=== PATIENT | female | born 1940 | race Caucasian/White ===

== ENCOUNTER 2016-08-13 12:24 | Emergency (ER) | payer MEDICARE ==
[~2016-08-13] VITALS: Ht 317.5 cm; Wt 65.0 kg
[~2016-08-13 12:24] MED LIST: ASPI1TAB69 PO; BACT800T5 PO; CARV25TA PO; FOLI1TAB4 PO; METH2.5T PO; OMEP20TA PO; OXYC-392 PO; ROSU1TAB6 PO; SERT-132 PO
[2016-08-13 12:48] VITALS: BP 159/71; PULSE 88; RESP 18; TEMP 98.4; O2SAT 96
--- NOTE | 2016-08-13 13:36 | PD ---
HPI Chief Complaint: Fall Time Seen by Provider: 12:48 Travel History International Travel<30 days: No Contact w/Intl Traveler<30days: No Traveled to known affect area: No History of Present Illness HPI 76 year-old woman history rheumatoid arthritis, some generalized debility, normally walks with a walker outside the house, no assistive devices inside a house, didn't with pain in her left back and left hip starting 2 days ago. 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 Since that time she's been having some intermittent left sided low back pain rating in the left hip. States symptoms come and go, worse when she goes to get from a seated to a standing position or lying to a seated position. Worse with standing. She otherwise has been feeling generally well. History Past Medical History Narrative Medical CAD, history of CABG Hyperlipidemia Osteoporosis Rheumatoid arthritis, on methotrexate Influenza Vaccination: Yes Menopausal: Yes : 4 Para: 3 Social History Alcohol Use: Yes (occ) Tobacco Use: No Allergies-Medications (Allergen,Severity, Reaction): Coded Allergies: No Known Allergies (Unverified , 08/13/16) Reported Meds & Prescriptions Reported Meds & Active Scripts Active Reported Omeprazole 20 Mg Tab 20 Mg PO DAILY Carvedilol 25 Mg Tab 25 Mg PO DAILY Oxycodone (Oxycodone HCl) 5 Mg Tab 5 Mg PO Q8HR Rosuvastatin (Rosuvastatin Calcium) 10 Mg Tab 10 Mg PO HS Folate (Folic Acid) 1 Mg Tab 1 Mg PO DAILY Sertraline (Sertraline HCl) 50 Mg Tab 50 Mg PO DAILY Methotrexate 2.5 Mg Tab 15 Mg PO Q7D Aspirin 81 Mg Tabdr 81 Mg PO DAILY Review of Systems Except as stated in HPI: all other systems reviewed are Neg Physical Exam Narrative GENERAL: Well-appearing 76 year-old woman, no acute distress. SKIN: Warm and dry. HEAD: Atraumatic. Normocephalic. CARDIOVASCULAR: Regular rate and rhythm. No murmur appreciated. RESPIRATORY: No accessory muscle use. Clear to auscultation. Breath sounds equal bilaterally. GASTROINTESTINAL: Abdomen soft, non-tender, nondistended. Hepatic and splenic margins not palpable. MUSCULOSKELETAL: No obvious deformities. No edema. Full range of motion of the left hip. There is no pain with internal or external rotation of the hip. With flexion of the knee to the [place] some pain in the low back and left hip. There is no obvious instability. Back exam reveals a little bit tenderness in the left low paraspinous muscles. NEUROLOGICAL: Awake and alert. No obvious cranial nerve deficits. Motor grossly within normal limits. Normal speech. PSYCHIATRIC: Appropriate mood and affect; insight and judgment normal. Data Data Last Documented VS Vital Signs Date Time Temp Pulse Resp B/P Pulse Ox O2 Delivery O2 Flow Rate FiO2 08/13/16 14:39 60 18 146/59 96 Room Air 08/13/16 12:[address] Pelvis W/O Iv Contrast (08/13/16 ) Ct Lumb Spine W/O Contrast (08/13/16 ) [facility] Medical Decision Making Medical Screen Exam Complete: Yes Emergency Medical Condition: Yes Interpretation(s) L-spine CT: Compression fracture L3 unchanged. Mild disc bulges lower lumbar spine. AAA measuring at least 4.3 cm but not completely evaluated. No acute fracture. Distal AAA measuring 4.2 x 2.7 cm. Diverticulosis. Differential Diagnosis Fracture, contusion, strain or sprain, other Narrative Course Medical decision making INITIAL: Left hip pain after fall on the right side. Possible she could have some chronic, compression fracture or pubic ramus fracture. Possible strain or sprain if she was walking abnormally from her right sided pain. She looks overall well. History of similar pains in the past. We'll check CT imaging, reassess, likely discharge for outpatient follow-up. Diagnosis Primary Impression: Acute exacerbation of chronic low back pain Additional Instructions: Follow-up with your primary doctor in the next 2-4 days. Return to the emergency department for any worsening pain, weakness, or any other new or worsening symptoms. Disposition: 01 DISCHARGE HOME Condition: Stable Yuri Edmonds MD Aug 13, 2016 13:36
[2016-08-13 14:39] VITALS: BP 146/59; PULSE 60; RESP 18; O2SAT 96
--- NOTE | 2016-08-13 14:39 | RADHPO ---
EXAM DATE/TIME: 08/13/2016 13:46 [facility] COMPARISON: CT LUMBAR SPINE W/O CONTRAST, June 09, 2016, 9:35. INDICATIONS : Trauma. Fell yesterday. Left hip and low back pain. RADIATION DOSE: 31.49 CTDIvol (mGy) MEDICAL HISTORY : Cardiovascular disease. Gastroesophageal reflux disease. Hypertension. SURGICAL HISTORY : CABG section.Gastric bypass. Hiatal hernia repair. ENCOUNTER: Initial ACUITY: 1 day PAIN SCALE: 8/10 LOCATION: Left Low back. TECHNIQUE: Volumetric scanning of the lumbar spine was performed. Multiplanar reconstructions in the sagittal, coronal and oblique axial planes were performed. Using automated exposure control and adjustment of the mA and/or kV according to patient size, radiation dose was kept as low as reasonably achievable t o obtain optimal diagnostic quality images. FINDINGS: VERTEBRAE: Mild/moderate compression fracture again noted along the superior endplate of L3. ALIGNMENT: No evidence of subluxation. Abdominal aortic aneurysm not completely visualized but measures at least 4.3 cm. Facet arthropathy lower lumbar spine. T12-L1: The thecal sac has a normal diameter. No evidence of disc bulge or protrusion. The neural foramina are patent bilaterally. L1-L2: The thecal sac has a normal diameter. No evidence of disc bulge or protrusion. The neural foramina are patent bilaterally. L2-L3: Mild broad-based disc bulge and slight retropulsion of posterior vertebral body from compression frac ture abuts the ventral thecal sac. No significant canal stenosis. The neural foramina are patent gregory aterally. L3-L4: Mild broad-based disc bulge abuts ventral thecal sac. No canal stenosis The neural foramina are paten t bilaterally. L4-L5: Mild broad-based disc bulge abuts ventral thecal sac. No canal stenosis. The neural foramina are pat ent bilaterally. L5-S1: The thecal sac has a normal diameter. No evidence of disc bulge or protrusion. The neural foramina are patent bilaterally. CONCLUSION: 1. Compression fracture at L3 is unchanged. 2. Mild disc bulges lower lumbar spine. 3. Abdominal aortic aneurysm measuring at least 4.3 cm but not completely evaluated on this study. Robert Gordon MD on August 13, 2016 at 14:29 Board Certified Radiologist. This report was verified electronically.
--- NOTE | 2016-08-13 14:45 | RADHPO ---
EXAM DATE/TIME: 08/13/2016 13:46 [facility] COMPARISON: No previous studies available for comparison. INDICATIONS : Trauma. Fell yesterday. Left hip and low back pain. ORAL CONTRAST: No oral contrast ingested. RADIATION DOSE: 25.85 CTDIvol (mGy) MEDICAL HISTORY : Cardiovascular disease. Gastroesophageal reflux disease. Hypertension. SURGICAL HISTORY : CABG section.Gastric bypass. Hiatal hernia repair. ENCOUNTER: Initial ACUITY: 1 day PAIN SCALE: 8/10 LOCATION: Left pelvis TECHNIQUE: Volumetric scanning of the pelvis was performed. Using automated exposure control and adjustment of the mA and/or kV according to patient size, radiation dose was kept as low as reasonably achievable t o obtain optimal diagnostic quality images. FINDINGS: BOWEL/MESENTERY: Diverticulosis without diverticulitis. No pelvic free fluid BLADDER: There is no wall thickening or mass. RETROPERITONEUM: There is no aneurysm or lymphadenopathy. REPRODUCTIVE: Within normal limits. INGUINAL: There is no lymphadenopathy or hernia. MUSCULOSKELETAL: Within normal limits for patient age. CONCLUSION: 1. No acute fracture. 2. Distal abdominal aortic aneurysm measures 4.2 x 3.7 cm. 3. Diverticulosis without diverticulitis. Robert Gordon MD on August 13, 2016 at 14:41 Board Certified Radiologist. This report was verified electronically.
== END 2016-08-13 15:10 | disposition home or self-care (01) ==
LOC: PHED 12:24
DX: M54.5 Low back pain (principal); G89.29 Other chronic pain
CPT/HCPCS: 72131; 72192

== ENCOUNTER 2017-01-14 12:35 | Emergency (ER) | payer MEDICARE ==
[~2017-01-14 12:35] MED LIST changes: -BACT800T5 PO
[2017-01-14 12:47] VITALS: BP 115/74; PULSE 81; RESP 16; TEMP 100.5; O2SAT 91
[2017-01-14] MEDS ORDERED: PRED5TAB PO (13:02)
[2017-01-14] MEDS ORDERED: FOLI1TAB6 PO (13:02)
[2017-01-14] MEDS ORDERED: ASPI81CH CHEW (13:02)
--- NOTE | 2017-01-14 13:18 | PD ---
HPI Chief Complaint: Dizziness Time Seen by Provider: 13:01 Travel History International Travel<30 days: No Contact w/Intl Traveler<30days: No Traveled to known affect area: No History of Present Illness HPI 77 years old female complains of dizziness. Patient states that the dizziness started this morning. Patient states that she has been unable to ambulate much because of the dizziness. Patient states that the dizziness is with ambulation. Patient states that she does not have any dizziness at rest. Patient states that she has mild aching headache behind the left eye this morning but that resolved completely. Patient denies any visual change. Patient denies any neck pain. Patient states that she has nonproductive cough for the past week. Patient denies any chest pain or shortness of breath. Patient denies abdominal pain. Patient denies any nausea vomiting diarrhea. Patient states that she had urinary frequency recently. Patient denies any dysuria. Patient denies any back pain. Patient denies any focal weakness and numbness of extremity. Patient denies any fever chills. PFSH Past Medical History Hx Anticoagulant Therapy: No Arthritis: Yes (R/A) Autoimmune Disease: Yes Anxiety: No Depression: Yes High Cholesterol: Yes Coronary Artery Disease: Yes Diminished Hearing: No Endocrine: No GERD: Yes Genitourinary: No Hypertension: Yes Immune Disorder: No Implanted Vascular Access Dvce: Yes Musculoskeletal: Yes Neurologic: No Psychiatric: No Reproductive: No Respiratory: No Thyroid Disease: No Influenza Vaccination: Yes ?: Not Menopausal: Yes : 4 Para: 3 Past Surgical History Abdominal Surgery: Yes (BYPASS AND HIATAL HERNIA REPAIR, BARIATRIC SURGERY.) Body Medical Devices: SCREWS IN RIGHT ANKLE. Section: Yes Coronary Artery Bypass Graft: Yes (TRIPLE BYPASS 2002) Social History Alcohol Use: Yes (ODDAS) Tobacco Use: No Substance Use: No Allergies-Medications (Allergen,Severity, Reaction): Coded Allergies: No Known Allergies (Unverified , 01/14/17) Reported Meds & Prescriptions Reported Meds & Active Scripts Active Reported Prednisone 5 Mg Tab 5 Mg PO DAILY PRN Folic Acid 1 Mg Tablet 1 Micron PO EVERY DAY BUT WEDNESDAY Aspirin 81 Mg Chew 81 Mg CHEW DAILY Omeprazole 20 Mg Tab 20 Mg PO DAILY Carvedilol 25 Mg Tab 12.5 Mg PO DAILY Oxycodone (Oxycodone HCl) 5 Mg Tab 5 Mg PO DAILY Rosuvastatin (Rosuvastatin Calcium) 10 Mg Tab 10 Mg PO HS Sertraline (Sertraline HCl) 50 Mg Tab 50 Mg PO DAILY Methotrexate 2.5 Mg Tab 20 Mg PO Q7D Review of Systems General / Constitutional: No: Fever Eyes: No: Visual changes HENT: Positive: Lightheadedness, No: Headaches Cardiovascular: No: Chest Pain or Discomfort Respiratory: No: Shortness of Breath Gastrointestinal: No: Abdominal Pain Genitourinary: No: Dysuria Musculoskeletal: No: Pain Skin: No Rash Neurologic: No: Weakness Psychiatric: No: Depression Endocrine: No: Polydipsia Hematologic/Lymphatic: No: Easy Bruising Physical Exam Narrative GENERAL: Well-nourished, well-developed patient. SKIN: Focused skin assessment warm/dry. HEAD: Normocephalic. EYES: No scleral icterus. No injection or drainage. Pupils 3 mm equal reactive. NECK: Supple, trachea midline. No JVD or lymphadenopathy. No meningismus CARDIOVASCULAR: Regular rate and rhythm without murmurs, gallops, or rubs. RESPIRATORY: Breath sounds equal bilaterally. No accessory muscle use. GASTROINTESTINAL: Abdomen soft, non-tender, nondistended. MUSCULOSKELETAL: No cyanosis, or edema. BACK: Nontender without obvious deformity. No CVA tenderness. Neurologic exam: Patient is awake and alert oriented 3. No obvious focal neurological deficit. Data Data Last Documented VS Vital Signs Date Time Temp Pulse Resp B/P Pulse Ox O2 Delivery O2 Flow Rate FiO2 01/14/17 13:29 18 93 Room Air 01/14/17 12:47 100.5 81 115/74 Orders Electrocardiogram (01/14/17 13:07) Complete Blood Count With Diff (01/14/17 13:07) Comprehensive Metabolic Panel (01/14/17 13:07) Creatine Kinase (Cpk) (01/14/17 13:07) Troponin I (01/14/17 13:07) Prothrombin Time / Inr (Pt) (01/14/17 13:07) Act Partial Throm Time (Ptt) (01/14/17 13:07) Blood Culture (01/14/17 13:07) Urinalysis - C+S If Indicated (01/14/17 13:07) Chest, Single Ap (01/14/17 13:07) Iv Access Insert/Monitor (01/14/17 13:07) Ecg Monitoring (01/14/17 13:07) Oximetry (01/14/17 13:07) Lactic Acid Sepsis Protocol (01/14/17 13:07) Ct Brain W/O Iv Contrast(Rout) (01/14/17 13:15) Labs Laboratory Tests Test 01/14/17 01/14/17 01/14/17 01/14/17 13:15 13:25 14:00 14:10 White Blood Count 6.4 TH/MM3 Red Blood Count 3.47 MIL/MM3 Hemoglobin 12.0 GM/DL Hematocrit 36.0 % Mean Corpuscular Volume 103.9 FL Mean Corpuscular Hemoglobin 34.5 PG Mean Corpuscular Hemoglobin 33.2 % Concent Red Cell Distribution Width 14.8 % Platelet Count 123 TH/MM3 Mean Platelet Volume 8.1 FL Neutrophils (%) (Auto) 77.0 % Lymphocytes (%) (Auto) 7.6 % Monocytes (%) (Auto) 6.2 % Eosinophils (%) (Auto) 8.9 % Basophils (%) (Auto) 0.3 % Neutrophils # (Auto) 4.9 TH/MM3 Lymphocytes # (Auto) 0.5 TH/MM3 Monocytes # (Auto) 0.4 TH/MM3 Eosinophils # (Auto) 0.6 TH/MM3 Basophils # (Auto) 0.0 TH/MM3 CBC Comment DIFF FINAL Differential Comment Prothrombin Time 10.9 SEC Prothromb Time International 1.0 RATIO Ratio Activated Partial 27.8 SEC Thromboplast Time Lactic Acid Level 1.7 mmol/L Sodium Level 141 MEQ/L Potassium Level 3.9 MEQ/L Chloride Level 107 MEQ/L Carbon Dioxide Level 25.9 MEQ/L Anion Gap 8 MEQ/L Blood Urea Nitrogen 16 MG/DL Creatinine 0.69 MG/DL Estimat Glomerular Filtration 83 ML/MIN Rate Random Glucose 109 MG/DL Calcium Level 8.0 MG/DL Total Bilirubin 0.4 MG/DL Aspartate Amino Transf 26 U/L (AST/SGOT) Alanine Aminotransferase 22 U/L (ALT/SGPT) Alkaline Phosphatase 73 U/L Total Creatine Kinase 60 U/L Troponin I LESS THAN 0.02 NG/ML Total Protein 6.6 GM/DL Albumin 3.0 GM/DL Urine Collection Type VOIDED Urine Color STRAW Urine Turbidity CLEAR Urine pH 6.0 Urine Specific [place] 1.007 Urine Protein NEG mg/dL Urine Glucose (UA) NEG mg/dL Urine Ketones NEG mg/dL Urine Occult Blood TRACE Urine Nitrite NEG Urine Bilirubin NEG Urine Leukocyte Esterase NEG Urine Squamous Epithelial 0-5 /hpf Cells Microscopic Urinalysis Comment CULT NOT INDICATED Urine Collection Time 1410 [facility] Medical Decision Making Medical Screen Exam Complete: Yes Emergency Medical Condition: Yes Interpretation(s) Last Impressions Head CT 01/14/17 1315 Signed Impressions: Service Date/Time: , January 14, 2017 14:04 - CONCLUSION: Normal examination for a patient of this age. No significant change compared to the prior exam. Homer Rice MD Chest X-Ray 01/14/17 1307 Signed Impressions: Service Date/Time: , January 14, 2017 13:32 - CONCLUSION: No acute disease. No significant change has occurred. Homer Rice MD 1454 PM. CBC with WBC 6.4. Hemoglobin 12.0 hematocrit 36.0. MCV 103.9. Platelet 123. 77 neutrophil. CMP within normal limits. Lactic acid 1.7. Cardiac enzymes are normal. UA is negative. Differential Diagnosis Differential diagnosis including viral syndrome, vertigo, electrolyte abnormality, dehydration, pneumonia, UTI, sepsis. Narrative Course 77 years old female with fever, dizziness and coughing. Normal saline solution 100 cc an hour. 1501 p.m. Reexamination patient's feeling much better. Diagnosis Primary Impression: Dizziness Additional Impression: Viral syndrome Patient Instructions: General Instructions Additional Instructions: Tylenol as needed for fever. Fluids and bed rest. Meclizine as needed for dizziness. Follow up with personal physician. Return if worse. Med/Other Pt SpecificInfo: Prescription(s) given, No Change to Meds Scripts Meclizine 25 Mg Tab25 Mg PO TID PRN (VERTIGO) #21 TAB Prov:Kalpesh New MD 01/14/17 Kalpesh New MD Jan 14, 2017 13:18
[2017-01-14 13:29] VITALS: RESP 18; O2SAT 93
[2017-01-14 13:34] LABS: AUTOMATED NEUTROPHIL # 4.9 TH/MM3 (1.8-7.7); BASOPHIL % 0.3 % (0.0-2.0); EOSINOPHIL # 0.6 TH/MM3 (0-0.4); EOSINOPHIL % 8.9 % (0.0-4.0); LYMPH % 7.6 % (9.0-44.0); LYMPHOCYTE # 0.5 TH/MM3 (1.0-4.8); MEAN CELL VOLUME 103.9 FL (80.0-100.0); MEAN CORPUSCULAR HEMOGLOBIN 34.5 PG (27.0-34.0); MEAN CORPUSCULAR HGB CONC 33.2 % (32.0-36.0); MONO % 6.2 % (0.0-8.0); PLATELET COUNT 123 TH/MM3 (150-450); RED BLOOD COUNT 3.47 MIL/MM3 (4.00-5.30); RED CELL DISTRIBUTION WIDTH 14.8 % (11.6-17.2); WHITE BLOOD COUNT 6.4 TH/MM3 (4.0-11.0)
[2017-01-14 13:40] LABS: HEMO FLAGS DIFF FINAL
--- NOTE | 2017-01-14 13:41 | RADRPT ---
EXAM DATE/TIME: 01/14/2017 13:32 [facility] COMPARISON: CHEST SINGLE AP, May 31, 2014, 15:34. INDICATIONS : Cough, dizziness. MEDICAL HISTORY : Cardiovascular disease. Hypertension Gastroesophageal reflux disease. SURGICAL HISTORY : CABG. hiatal hernia repair ENCOUNTER: Initial ACUITY: 1 day PAIN SCORE: 0/10 LOCATION: Bilateral chest FINDINGS: A single view of the chest demonstrates the lungs to be symmetrically aerated without evidence of mas s, infiltrate or effusion. There are chronic interstitial changes throughout both lung ramírez. The ca rdiomediastinal contours are unremarkable. There is evidence of previous cardiothoracic surgery. Oss eous structures are intact and stable. No significant changes compared to the prior study. CONCLUSION: No acute disease. No significant change has occurred. Homer Rice MD on January 14, 2017 at 13:38 Board Certified Radiologist. This report was verified electronically.
[2017-01-14 13:46] LABS: APTT (PATIENT) 27.8 SEC (24.3-30.1); PROTHROMBIN TIME - PATIENT 10.9 SEC (9.8-11.6)
[2017-01-14 14:14] LABS: CHLORIDE 107 MEQ/L (98-107); POTASSIUM 3.9 MEQ/L (3.5-5.1); SODIUM (NA) 141 MEQ/L (136-145)
[2017-01-14 14:15] LABS: BLOOD, URINE TRACE (NEG); GLUCOSE,URINE NEG (NEG); KETONE, URINE NEG (NEG); NITRITE,URINE NEG (NEG)
[2017-01-14 14:18] LABS: ANION GAP 8 MEQ/L (5-15); BICARBONATE 25.9 MEQ/L (21.0-32.0); BLOOD UREA NITROGEN 16 MG/DL (7-18)
[2017-01-14 14:21] LABS: ALT (GPT) 22 U/L (10-53); AST (GOT) 26 U/L (15-37); GLOMERULAR FILTRATION RATE 83 ML/MIN (>89)
[2017-01-14 14:23] LABS: TOTAL BILIRUBIN ADULT 0.4 MG/DL (0.2-1.0)
[2017-01-14 14:24] LABS: ALKALINE PHOSPHATASE 73 U/L (45-117)
[2017-01-14 14:30] LABS: CREATINE KINASE 60 U/L (26-192)
[2017-01-14 14:39] LABS: METHOD OF COLLECTION VOIDED
[2017-01-14 14:40] LABS: URINE COLOR STRAW (YELLW/STRAW)
[2017-01-14 14:41] LABS: COMMENT (UR) CULT NOT INDICATED; CULTURE IF INDICATED CULT NOT INDICATED; SQUAMOUS EPITHELIAL CELL URINE 0-5 /hpf (0-5)
--- NOTE | 2017-01-14 14:42 | RADRPT ---
EXAM DATE/TIME: 01/14/2017 14:04 [facility] COMPARISON: CT BRAIN W/O CONTRAST, May 31, 2014, 15:56. INDICATIONS : Dizziness. RADIATION DOSE: 63.51 CTDIvol (mGy) MEDICAL HISTORY : Hypertension. Cardiovascular disease Gastroesophageal reflux disease. SURGICAL HISTORY : CABG section. ENCOUNTER: Initial ACUITY: 1 day PAIN SCALE: 0/10 LOCATION: cranial TECHNIQUE: Multiple contiguous axial images were obtained of the head. Using automated exposure control and adj ustment of the mA and/or kV according to patient size, radiation dose was kept as low as reasonably a chievable to obtain optimal diagnostic quality images. DICOM format image data is available electro nically for review and comparison. FINDINGS: CEREBRUM: The ventricles are normal for age. Stable bilateral cortical atrophy especially overlying the frontal lobes. No evidence of midline shift, mass lesion, hemorrhage or acute infarction. No extra-axial f luid collections are seen. POSTERIOR FOSSA: The cerebellum and brainstem are intact. The 4th ventricle is midline. The cerebellopontine angle i s unremarkable. EXTRACRANIAL: The visualized portion of the orbits is intact. SKULL: The calvaria is intact. No evidence of skull fracture. CONCLUSION: Normal examination for a patient of this age. No significant change compared to the prior exam. Homer Rice MD on January 14, 2017 at 14:39 Board Certified Radiologist. This report was verified electronically.
[2017-01-14 14:55] VITALS: BP 107/66; PULSE 74; RESP 18; TEMP 99.9; O2SAT 94
[2017-01-14] MEDS ORDERED: MECL-62 PO (15:02)
--- NOTE | 2017-01-15 13:46 | EKG ---
Date Performed: 01/14/2017 Time Performed: 13:25:29 PTAGE: 77 years EKG: Sinus rhythm WITH FIRST DEGREE AV BLOCK MARKED LEFT AXIS DEVIATION PATTERN CONSISTENT WITH PULMONARY DISEASE MODE RATE T-WAVE ABNORMALITY, CONSIDER ANTERIOR ISCHEMIA ABNORMAL ECG Compared to prior tracing no signifi cant change PREVIOUS TRACING : 05/31/2014 15.33 DOCTOR: Manish Berrios Interpretating Date/Time 01/15/2017 13:44:08
== END 2017-01-14 15:14 | disposition home or self-care (01) ==
LOC: PHED 12:35
DX: R42 Dizziness and giddiness (principal); B34.9 Viral infection, unspecified; R51 Headache; R05 Cough; R94.31 Abnormal electrocardiogram [ECG] [EKG]; I25.10 Atherosclerotic heart disease of native coronary artery without angina pectoris; I10 Essential (primary) hypertension; K21.9 Gastro-esophageal reflux disease without esophagitis
CPT/HCPCS: 70450; 71010; 80053; 81001; 82550; 83605; 84484; 85025; 85610; 85730; 87040; 93005

== ENCOUNTER 2017-08-07 12:42 | Emergency (ER) | payer MEDICARE ==
[~2017-08-07] VITALS: Ht 157.5 cm; Wt 65.0 kg
[~2017-08-07 12:42] MED LIST changes: +ASPI-516 CHEW; -ASPI1TAB69 PO; -FOLI1TAB4 PO; +FOLI1TAB6 PO; +MECL-62 PO; -OMEP20TA PO; +OMEP20TA93 PO; +PRED5TAB PO
[2017-08-07 12:45] VITALS: BP 136/85; PULSE 90; RESP 16; TEMP 98.8; O2SAT 95
[2017-08-07] MEDS ORDERED: CALC-159 PO (12:58)
--- NOTE | 2017-08-07 13:58 | PD ---
HPI Chief Complaint: Injury Time Seen by Provider: 13:07 Travel History International Travel<30 days: No Contact w/Intl Traveler<30days: No Traveled to known affect area: No History of Present Illness HPI 77 yr female presents to part with left foot and ankle pain after slipping in the kitchen yesterday. Patient states that she slipped and fell hitting her foot against the cabinet and the back of her head on a tile floor. Patient states that she is having increased pain and cannot walk on her foot because of the pain. Her pain is located at the great toe and ankle joints. Described as moderate that increases with movement. Patient denies numbness tingling. Currently she does have tenderness to the back of her head. Patient denies LOC , headache, dizziness. Denies any unusual weakness. Patient is not on blood thinners. Denies neck or back pain. PFSH Past Medical History Hx Anticoagulant Therapy: No Arthritis: Yes (R/A) Autoimmune Disease: Yes Anxiety: No Depression: Yes High Cholesterol: Yes Coronary Artery Disease: Yes Diminished Hearing: No Endocrine: No GERD: Yes Genitourinary: No Hypertension: Yes Immune Disorder: No Implanted Vascular Access Dvce: Yes Musculoskeletal: Yes Neurologic: No Psychiatric: No Reproductive: No Respiratory: No Thyroid Disease: No Menopausal: Yes : 4 Para: 3 Past Surgical History Abdominal Surgery: Yes (BYPASS AND HIATAL HERNIA REPAIR, BARIATRIC SURGERY.) Body Medical Devices: SCREWS IN RIGHT ANKLE. Section: Yes Coronary Artery Bypass Graft: Yes (TRIPLE BYPASS 2002) Social History Alcohol Use: Yes (ODDAS) Tobacco Use: No Substance Use: No Allergies-Medications (Allergen,Severity, Reaction): Coded Allergies: No Known Allergies (Unverified Adverse Reaction, Unknown, 08/07/17) Reported Meds & Prescriptions Reported Meds & Active Scripts Active Reported Calcium Folinate (Leucovorin Calcium) 1 Gm Powder 5 Mg PO DAILY Prednisone 5 Mg Tab 5 Mg PO DAILY PRN Folic Acid 1 Mg Tablet 1 Micron PO EVERY DAY BUT WEDNESDAY Aspirin 81 Mg Chew 81 Mg CHEW DAILY Omeprazole 20 Mg Tab 20 Mg PO DAILY Carvedilol 25 Mg Tab 12.5 Mg PO DAILY Rosuvastatin (Rosuvastatin Calcium) 10 Mg Tab 10 Mg PO HS Sertraline (Sertraline HCl) 50 Mg Tab 50 Mg PO DAILY Methotrexate 2.5 Mg Tab 15 Mg PO Q7D Review of Systems Except as stated in HPI: all other systems reviewed are Neg Physical Exam Narrative GENERAL: Well developed well nourished in no apparent distress SKIN: Focused skin assessment warm/dry. HEAD: Atraumatic. Normocephalic. EYES: Pupils equal and round. No scleral icterus. No injection or drainage. ENT: No nasal bleeding or discharge. Mucous membranes pink and moist. NECK: Supple, nontender. No meningeal signs. Trachea midline. No JVD or lymphadenopathy. CARDIOVASCULAR: Regular rate and rhythm. No murmur appreciated. RESPIRATORY: No accessory muscle use. Clear to auscultation. Breath sounds equal bilaterally. GASTROINTESTINAL: Abdomen soft, non-tender, nondistended. MUSCULOSKELETAL: No obvious deformities. No clubbing. No cyanosis. No edema. Right toe- ecchymosis present without deformities. Cap refill present. Neurovascularly intact TTP to lower left leg without deformities or crepitus. Anterior ankle joints tenderness palpation without obvious crepitus or deformities. NEUROLOGICAL: Awake and alert. No obvious cranial nerve deficits. Motor grossly within normal limits. Normal speech. PSYCHIATRIC: Appropriate mood and affect; insight and judgment normal. Data Data Last Documented VS Vital Signs Date Time Temp Pulse Resp B/P (MAP) Pulse Ox O2 Delivery O2 Flow Rate FiO2 08/07/17 12:45 98.8 90 16 136/85 (102) 95 Orders Orders Foot, Complete (Cfe9blw) (08/07/17 ) Ankle, Limited (Ap&Lat) (08/07/17 ) Ct Brain W/O Iv Contrast(Rout) (08/07/17 ) Ct Cerv Spine W/O Contrast (08/07/17 ) Acetamin-Hydrocod 325-5 Mg ([place] 5-325 (08/07/17 14:00) Ed Discharge Order (08/07/17 15:19) MDM Medical Decision Making Medical Screen Exam Complete: Yes Emergency Medical Condition: Yes Differential Diagnosis Toe fracture, ankle fracture, head contusion, skull fracture Narrative Course 77 yr female presents to part with left foot and ankle pain after slipping in the kitchen yesterday. Patient states that she slipped and fell hitting her foot against the cabinet and the back of her head on a tile floor. Patient states that she is having increased pain and cannot walk on her foot because of the pain. Her pain is located at the great toe and ankle joints. Described as moderate that increases with movement. Patient denies numbness tingling. Currently she does have tenderness to the back of her head. Patient denies LOC , headache, dizziness. Denies any unusual weakness. Patient is not on blood thinners. Denies neck or back pain. Vital signs stable. Physical exam exam finding is consistent with a left toe fracture versus contusion. Skull fracture versus contusion. Last Impressions Head CT 08/07/17 0000 Signed Impressions: Service Date/Time: Monday, August 07, 2017 14:31 - CONCLUSION: 1. 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 2. No acute intracranial process or trauma. Carlos Pickens MD Foot X-Ray 08/07/17 0000 Signed Impressions: Service Date/Time: Monday, August 07, 2017 14:24 - CONCLUSION: No evidence of fracture. Reji Hammond MD Cervical Spine CT 08/07/17 0000 Signed Impressions: Service Date/Time: Monday, August 07, 2017 14:31 - CONCLUSION: No evidence of fracture. Multilevel degenerative findings. Reji Hammond MD Ankle X-Ray 08/07/17 0000 Signed Impressions: Service Date/Time: Monday, August 07, 2017 14:19 - CONCLUSION: Diffuse bone demineralization. No evidence of fracture. Reji Hammond MD Postop shoe given. Weightbearing as tolerated. I highly advised patient to follow up with a primary care physician for potential referral to podiatry. Tylenol or Motrin per package instructions for pain relief. RICE for pain, joint pains. Return for worsening or persistent symptoms. Diagnosis Primary Impression: Toe contusion Qualified Codes: S90.112A - Contusion of left great toe without damage to nail , initial encounter Additional Impressions: Ankle contusion Qualified Codes: S90.02XA - Contusion of left ankle, initial encounter Head contusion Qualified Codes: S00.03XA - Contusion of scalp, initial encounter Referrals: Primary Care Physician Additional Instructions: If you develops increased headache, head pain, neck, vomiting or diarrhea, return to the emergency Department immediately. Elevate, rest, ice your left foot and ankle for symptomatic relief. You may take Tylenol per package instructions for your pain. Follow-up a primary care physician this week. Weightbearing as tolerated. Disposition: 01 DISCHARGE HOME Condition: Stable Rosalinda Titus Aug 07, 2017 13:57
[2017-08-07] MEDS ORDERED: ACETAMINOPHEN/HYDROcodone 325 MG/5 MG TAB PO ONE (14:00)
--- NOTE | 2017-08-07 14:46 | RADRPT ---
EXAM DATE/TIME: 08/07/2017 14:31 [facility] COMPARISON: CT BRAIN W/O CONTRAST, January 14, 2017, 14:04. INDICATIONS : Head injury posterior, fell. RADIATION DOSE: 63.18 CTDIvol (mGy) MEDICAL HISTORY : Cardiovascular disease. Hypercholesterolemia. Hypertension.GERD SURGICAL HISTORY : Bariatric, Hialtial hernia ENCOUNTER: Initial ACUITY: 1 day PAIN SCALE: 5/10 LOCATION: posterior head TECHNIQUE: Multiple contiguous axial images were obtained of the head. Using automated exposure control and adj ustment of the mA and/or kV according to patient size, radiation dose was kept as low as reasonably a chievable to obtain optimal diagnostic quality images. DICOM format image data is available electro nically for review and comparison. FINDINGS: CEREBRUM: The ventricles are normal for age. Periventricular areas of diminished attenuation are characteristi c of moderately severe small vessel ischemic demyelination. Old lacunar type infarct in the anterior limb of the right internal capsule. No evidence of midline shift, mass lesion, hemorrhage or acute in farction. No extra-axial fluid collections are seen. POSTERIOR FOSSA: The cerebellum and brainstem are intact. The 4th ventricle is midline. The cerebellopontine angle i s unremarkable. EXTRACRANIAL: The visualized portion of the orbits is intact. SKULL: The calvaria is intact. No evidence of skull fracture. CONCLUSION: 1. Chronic changes with periventricular small vessel ischemic demyelination and an old lacunar type i nfarct in the anterior limb of the right internal capsule. 2. No acute intracranial process or trauma. Carlos Pickens MD on August 07, 2017 at 14:40 Board Certified Radiologist. This report was verified electronically.
--- NOTE | 2017-08-07 14:58 | RADRPT ---
EXAM DATE/TIME: 08/07/2017 14:19 [facility] COMPARISON: No previous studies available for comparison. INDICATIONS : Fell, left ankle pain MEDICAL HISTORY : Cerebrovascular disease. SURGICAL HISTORY : CABG. ENCOUNTER: Initial ACUITY: 2 days PAIN SCORE: 10/10 LOCATION: Left ankle FINDINGS: 2 views left ankle. Diffuse bone demineralization. Alignment within normal limits. No evidence of fra cture. CONCLUSION: Diffuse bone demineralization. No evidence of fracture. Reji Hammond MD on August 07, 2017 at 14:55 Board Certified Radiologist. This report was verified electronically.
--- NOTE | 2017-08-07 14:59 | RADRPT ---
EXAM DATE/TIME: 08/07/2017 14:24 [facility] COMPARISON: No previous studies available for comparison. INDICATIONS : Fell, left foot pain MEDICAL HISTORY : Cardiovascular disease. SURGICAL HISTORY : CABG. ENCOUNTER: Initial ACUITY: 2 days PAIN SCORE: 10/10 LOCATION: Left foot FINDINGS: 3 views left foot. Diffuse bone demineralization. Bone alignment within normal limits. No evidence o f fracture. CONCLUSION: No evidence of fracture. Reji Hammond MD on August 07, 2017 at 14:55 Board Certified Radiologist. This report was verified electronically.
--- NOTE | 2017-08-07 15:04 | RADRPT ---
EXAM DATE/TIME: 08/07/2017 14:31 [facility] COMPARISON: No previous studies available for comparison. INDICATIONS : Fall hitting back of head. RADIATION DOSE: 26.62 CTDIvol (mGy) MEDICAL HISTORY : Cardiovascular disease. Hypercholesterolemia. Hypertension.GERD SURGICAL HISTORY : Bariatric, Hiatial hernia ENCOUNTER: Initial ACUITY: 1 day PAIN SCALE: 1/10 LOCATION: neck TECHNIQUE: Volumetric scanning of the cervical spine was performed. Multiplanar reconstructions in the sagittal, coronal and oblique axial planes were performed. Using automated exposure control and adjustment o f the mA and/or kV according to patient size, radiation dose was kept as low as reasonably achievable to obtain optimal diagnostic quality images. DICOM format image data is available electronically f or review and comparison. FINDINGS: VERTEBRAE: Normal vertebral body height. ALIGNMENT: 2 mm anterolisthesis C3 on C4. 2 mm retrolisthesis C5 on C6. 2 mm retrolisthesis C6 on C7. C2-C3: The bony spinal canal is normal in size. No evidence of disc bulge or herniation. The neural forami na are bilaterally patent. C3-C4: Minimal broad-based disc osteophyte complex. No evidence of focal disc protrusion. Central canal norm al diameter. Neural foraminal diameters within normal limits. C4-C5: Moderate bilateral facet arthrosis. No evidence of focal disc protrusion. Central canal normal diamet er. Neural foraminal diameters within normal limits. C5-C6: Broad-based disc osteophyte complex and bilateral facet arthrosis. Moderate right and mild left neura l foraminal narrowing. Central canal diameter within normal limits. C6-C7: Bilateral facet arthrosis. Mild bilateral neural foraminal narrowing. Central canal diameter within n ormal limits. C7-T1: The bony spinal canal is normal in size. No evidence of disc bulge or herniation. The neural forami na are bilaterally patent. CONCLUSION: No evidence of fracture. Multilevel degenerative findings. Reji Hammond MD on August 07, 2017 at 14:56 Board Certified Radiologist. This report was verified electronically.
== END 2017-08-07 15:39 | disposition home or self-care (01) ==
LOC: PHEFT 12:42
DX: S90.112A Contusion of left great toe without damage to nail, initial encounter (principal); S90.02XA Contusion of left ankle, initial encounter; S00.03XA Contusion of scalp, initial encounter; F32.9 Major depressive disorder, single episode, unspecified; E78.00 Pure hypercholesterolemia, unspecified; I25.10 Atherosclerotic heart disease of native coronary artery without angina pectoris; K21.9 Gastro-esophageal reflux disease without esophagitis; I10 Essential (primary) hypertension; M06.9 Rheumatoid arthritis, unspecified; W01.198A Fall on same level from slipping, tripping and stumbling with subsequent striking against other object, initial encounter; Z95.1 Presence of aortocoronary bypass graft
CPT/HCPCS: 70450; 72125; 73600; 73630; 99285; L3260